=== PATIENT | female | born 1955 | race Caucasian/White ===

== ENCOUNTER → 2018-02-10 08:18 | Outpatient (CLI) | payer BC, SELFPAY ==
--- NOTE | 2018-02-10 08:24 | XR_ITS ---
XR foot wt bearing RT 3V HISTORY: ITS.REASON: pain ORDERING PHYSICIAN: Yanni Villegas DPM PATIENT AGE: 63 years COMPARISON: None FINDINGS: There is moderate hallux valgus with mild osteoarthritic change of the first MTP joint and mild hypertrophy of the distal aspect of the first metatarsal with soft tissue thickening at the distal first metatarsal medially. There is flattening of the head of the second metatarsal consistent with Freiberg's infarction.. No acute fracture or dislocation. No lytic or blastic change. There is borderline pes planus. IMPRESSION: 1. Hallux valgus with bunion formation 2. Freiberg's infarction second metatarsal head
--- NOTE | 2018-02-10 08:24 | XR_ITS ---
XR foot wt bearing LT 3V HISTORY: ITS.REASON: pain ORDERING PHYSICIAN: Yanni Villegas DPM PATIENT AGE: 63 years COMPARISON: History FINDINGS: There is severe hallux valgus with bunion formation at the distal first metatarsophalangeal joint and lateral displacement of the sesamoid bones at the distal first metatarsal and there is soft tissue swelling at the medial aspect of the distal first metatarsal. Mild pes planus. IMPRESSION: 1. Severe hallux valgus with bunion formation. 2. Mild pes planus
== END ==
PROVIDERS: PCP Nurse Practitioner Family; Visit Provider Podiatrist
DX: M79.673 Pain in unspecified foot (principal)
CPT/HCPCS: 73630

== ENCOUNTER → 2018-07-26 09:04 | Outpatient (POV) | payer BC, SELFPAY | PROVIDERS: Visit Provider Podiatrist | DX: Z00.00 Encounter for general adult medical examination without abnormal findings (principal) ==

== ENCOUNTER → 2018-08-23 10:13 | Outpatient (POV) | payer BC, SELFPAY | PROVIDERS: Visit Provider Podiatrist | DX: Z00.00 Encounter for general adult medical examination without abnormal findings (principal) ==

== ENCOUNTER 2019-11-16 21:52 | Emergency (ER) | payer BC, SELFPAY ==
[2019-11-16 22:11] VITALS: BP 189/84; PULSE 62; RESP 18; TEMP 36.6; O2SAT 99; BMI 29.0
--- NOTE | 2019-11-16 22:21 | CT_ITS ---
Procedure: CT ABDOMEN PELVIS WO CON Patient Age:64Y CLINICAL INDICATION: Right flank pain nausea and vomiting. Nonsmoker. COMPARISON: ABDPELW/O CT ABD PELVIS W/O CONTRAST from 05/11/2013 TECHNIQUE: No IV contrast. No oral contrast Helical Axial images obtained with sagittal and coronal reformats. All CT scans at the facility use one or more dose reduction, viz: automated exposure control, ma/kV adjustment per patient size (including targeted exams where dose is matched to indication, i.e. head), or iterative reconstruction technique. FINDINGS: Lower thorax: Mild dependent atelectasis posterior lung bases no significant acute findings. Small calcified granuloma anterior to the right infrahilar area ABDOMEN: Lack of oral and IV contrast decrease sensitivity and some regards but Liver: No masses or biliary dilatation. Small granulomatous calcifications few Gallbladder: Nondistended. No radio opaque stones. Pancreas: No masses or peripancreatic fluid collections. Spleen: unremarkable normal size granulomatous calcifications Adrenals: unremarkable ---- TRACT--------obstructive uropathy on right Small punctate calculi a few small punctate calculi both kidneys, less evident than on 2014 with 2 small calculi lower pole right kidney and upper pole left kidney. None measuring over 2 mm Right kidney: Mild hydronephrosis, with mild dilatation of the entire right ureter to the bladder; where we encounter a 3.75 mm transverse X 5.7 mm length elongated calculus projected over the posterior bladder-just entering the bladder or on the verge of passing through the final lips of the right UVJ. The obstructive uropathy yields mild diffuse periureteral stranding along with perinephric stranding reflecting the moderate pronounced obstructive uropathy. Two small nonobstructive calculi at upper pole left kidney Left kidney. I believe multiple parapelvic cysts at the left kidney, most likely account for the multiple fluid density areas centrally, (this is most convincing when compared to the coronal slice from 2014 CT).. Doubt obstructive uropathy on left PELVIS: Reproductive: unremarkable Bladder: Nondistended. No obvious stones or masses. Appendix: Unremarkable. No distention or periappendiceal phlegmonous change. GI tract Small hiatal hernia noted. Stomach: Moderate food and fluid mildly distend stomach Small bowel. No distension no wall thickening. Normal caliber. A few scattered air-fluid levels could reflect a minor ileus but unimpressive. Appendix normal. Large bowel with moderate stool right colon. Lack of distention and lack of stool of left colon accounts for the upper normal wall thickness here at left colon. .. Peritoneum: No abnormal fluid collections... No free air. Lymph nodes: No enlarged lymph nodes apparent. Vasculature: No evidence of abdominal aortic aneurysm. No retroperitoneal hemorrhage evident. Bones: No acute fracture or findings. Degenerative changes of the spine with disc space narrowing and spondylosis most pronounced L1/2 to the right, and L2/3. With associated levoscoliosis T12/L3 IMPRESSION: 1..Obstructive uropathy on right . Mild hydronephrosis with mild diffuse dilatation right ureter- due to calculus projected over posterior bladder at distal right UVJ and on the verge of passing into the bladder (this calculus measures 3.75 mm transverse X near 6 mm length) 2..Few tiny nonobstructive punctate calculi at kidneys bilaterally today (but less numerous than 2014) 3..Multiple parapelvic cyst most likely account for the appearance left kidney but Dictated by: Martinez Robles MD 11/17/2019 09:17 Electronically signed by Martinez Robles MD in [place] 11/17/19
[2019-11-16 22:29] LABS: Microscopic, Urine URINE MICROSCOPIC (MICROSCOPIC)
[2019-11-16 22:39] LABS: Appearance,Urine CLOUDY (Clear); Bilirubin,Urine Negative (Negative); Blood, Urine 3+ (Negative); Color,Urine YELLOW (Yellow); Glucose,Urine (UA) Negative (Negative); Ketones,Urine Negative (Negative); Leukocyte Esterase,Urine 2+ (Negative); Nitrate,Urine Negative (Negative); Protein,Urine 1+ (Negative); Urobilinogen,Urine 0.2 EU/dl (0.2)
--- NOTE | 2019-11-16 22:39 | HMH.EDGENADL ---
ED Disposition Clinical Impression: Renal colic on right side UTI (urinary tract infection) Qualifiers: Urinary tract infection type: site unspecified Hematuria presence: without hematuria Qualified Code(s): N39.0 - Urinary tract infection, site not specified Disposition: Home, Self-Care Condition on Discharge: Good Instructions: DI for Kidney Stones Additional Instructions: fluids and use meds and call pcp and dr massey on monday Prescriptions: Tamsulosin HCl [Flomax 0.4mg capsule] 0.4 mg PO HS #10 cap Transmission Status: Pending to [id number] levoFLOXacin [Levaquin 500mg tab] 500 mg PO DAILY #7 tab Transmission Status: Pending to [id number] Referrals: Dolores Moreno APRN [Primary Care Provider] - - Critical Care Critical Care Time: No Attestation: On 11/16/19, the high probability of a clinically significant, sudden or life threatening deterioration of the following system(s) required my full and direct attention, intervention and personal management. The time I documented below is in addition to time spent performing reported procedures but includes the following listed in this critical care notation. Medical Decision Making - Medical Records Medical records reviewed: Yes: I reviewed the patient's medical records. - Jose G Inquiry Pt receiving controlled substance: No Vital Signs: 11/16/19 22:11 Temperature 97.9 F Temperature Source Oral Pulse Rate [Left] 62 Respiratory Rate 18 Blood Pressure [Right Arm] 189/84 H Blood Pressure Mean [Right Arm] 119 Blood Pressure Source [Right Arm] Automatic Cuff Blood Pressure Position [Right Arm] Sitting 02 Sat by Pulse Oximetry 99 Oxygen Delivery Method Room Air - Lab Data Lab results reviewed: Yes: I reviewed the patient's lab results. Lab Results 11/16/19 22:10: Urine Color Yellow, Urine Appearance Cloudy, Urine pH 8.0, Ur Specific [place] 1.020, Urine Protein 1+, Urine Glucose (UA) Negative, Urine Ketones Negative, Urine Blood 3+, Urine Nitrate Negative, Urine Bilirubin Negative, Urine Urobilinogen 0.2, Ur Leukocyte Esterase 2+ A, Urine WBC 20-50, Amorphous Sediment 4+ 11/16/19 22:15: WBC 10.6, RBC 4.48, Hgb 13.6, Hct 41.3, MCV 92.2, MCH 30.4, MCHC 33.0, RDW 13.8, Plt Count 253, MPV 8.1, Neut % (Auto) 63.2, Lymph % (Auto) 29.6, [place] % (Auto) 5.4, Eos % (Auto) 1.5, Baso % (Auto) 0.3, Neut # (Auto) 6.7, Lymph # (Auto) 3.1, [place] # (Auto) 0.6, Eos # (Auto) 0.2, Baso # (Auto) 0.0 11/16/19 22:15: Sodium 142, Potassium 3.4 L, Chloride 103, Carbon Dioxide 27, Anion Gap 15.4 H, BUN 13, Creatinine 1.10 H, Estimated Creat Clear 66, Estimated GFR 50 L, Est GFR ( Amer) 60, Glucose 143 H, Calcium 10.7 H, Total Bilirubin 0.5, AST 33, ALT 17, Alkaline Phosphatase 90, Total Protein 7.3, Albumin 4.3, Globulin 3.0, Albumin/Globulin Ratio 1.4 Result diagrams: 11/16/19 22:15 11/16/19 22:15 Orders (Tests/Meds): ED MEDICATIONS Generic Name Dose Route Start Last Admin Trade Name Freq PRN Reason Stop Dose Admin Sodium Chloride 1,000 mls @ 999 mls/hr 11/16/19 22:30 11/16/19 22:29 Sod Chlor 0.9% 1000ml Bag IV 11/16/19 23:30 999 mls/hr .Q1H1M KAMI Administration Ceftriaxone Sodium 1 gm/ 50 mls @ 100 mls/hr 11/16/19 23:45 11/16/19 23:46 Sodium Chloride IV 11/30/19 23:44 100 mls/hr Q24H KAMI Administration Protocol Tamsulosin HCl 0.4 mg 11/17/19 23:44 Flomax 0.4mg Capsule PO 11/17/19 23:45 ONCE ONE Discontinued Medications Generic Name Dose Route Start Last Admin Trade Name Freq PRN Reason Stop Dose Admin Ketorolac Tromethamine 30 mg 11/16/19 22:21 11/16/19 22:28 Toradol 30mg/Ml Vial IV 11/16/19 22:22 30 mg ONCE ONE Administration Morphine Sulfate 4 mg 11/16/19 23:09 07/25/20 23:13 Morphine 4mg/Ml Syringe IV 11/16/19 23:10 4 mg ONCE ONE Administration Ondansetron HCl 4 mg 11/16/19 22:21 11/16/19 22:28 Zofran 4mg/2ml Vial IV 11/16/19 22:22 4 mg ONCE ONE
[2019-11-16 22:40] LABS: Basophils % 0.3 % (0.1-2.0); Eosinophils # 0.2 K/mm3 (0.0-0.4); Eosinophils % 1.5 % (0.1-12.0); Hematocrit 41.3 % (37.0-47.0); Hemoglobin 13.6 g/dL (12.2-16.2); Lymphocytes # 3.1 K/mm3 (0.7-4.5); Lymphocytes % 29.6 % (10-50); Mean Corpuscular Hemoglobin 30.4 pg (27.0-31.2); Mean Corpuscular Volume 92.2 fl (81-99); Mean Platelet Volume 8.1 fl (7.4-10.4); Monocytes # 0.6 K/mm3 (0.1-1.0); Monocytes % 5.4 % (1.7-9.3); Neutrophils # 6.7 K/mm3 (1.8-7.8); Neutrophils % 63.2 % (37.0-80.0); Platelet Count 253 K/mm3 (142-424); Red Blood Count 4.48 M/mm3 (4.20-5.40); Red Cell Distribution Width 13.8 % (11.5-17.5); White Blood Count 10.6 K/mm3 (4.8-10.8)
[2019-11-16 22:42] LABS: Alanine Aminotransferase 17 U/L (12-78); Albumin Level 4.3 g/dl (3.5-5.0); Albumin/Globulin Ratio 1.4 (1.1-1.8); Alkaline Phosphatase 90 U/L (38-126); Anion Gap 15.4 mEq/L (5-15); Aspartate Amino Transferase 33 U/L (14-36); Bilirubin,Total 0.5 mg/dl (0.2-1.3); Blood Urea Nitrogen 13 mg/dl (7-17); Calcium 10.7 mg/dl (8.4-10.2); Carbon Dioxide 27 mmol/L (22.0-30.0); Chloride 103 mmol/L (98-107); Creatinine Clearance Estimated 66 mL/min (50-200); Estimated Glomerular Filt Rate 50 ml/min (>60); GFR (African American) 60 ML/MIN (>60); Glucose 143 mg/dl (74-100); Potassium 3.4 mmoL/L (3.5-5.1); Sodium 142 mmol/L (136-145); Total Protein,Serum 7.3 g/dl (6.3-8.2)
[2019-11-16 22:45] LABS: Amorphous Sediment,Urine 4+ /lpf; WBC,Urine 20-50 #/hpf (0-3)
[2019-11-17 00:08] VITALS: BP 118/42; PULSE 76; RESP 12; TEMP 36.6; O2SAT 98
== END 2019-11-17 00:13 | disposition home or self-care (01) ==
PROVIDERS: Emergency Provider Emergency Medicine; PCP Nurse Practitioner Family
DX: N23 Unspecified renal colic (principal); N30.00 Acute cystitis without hematuria; J44.9 Chronic obstructive pulmonary disease, unspecified; K21.9 Gastro-esophageal reflux disease without esophagitis; E78.5 Hyperlipidemia, unspecified; Z79.899 Other long term (current) drug therapy; M81.0 Age-related osteoporosis without current pathological fracture
CPT/HCPCS: 74176; 80053; 81001; 85025; 87086; 96365; 96366; 96367; 96375; 96376; 99283; J2405

== ENCOUNTER 2019-11-20 11:46 | Emergency (ER) | payer BC, SELFPAY ==
--- NOTE | 2019-11-20 11:55 | HMH.EDGENADL ---
ED Disposition Clinical Impression: Renal colic on right side Disposition: Home, Self-Care Condition on Discharge: Good Instructions: DI for Acute Pain -- Adult, DI for Kidney Stones Additional Instructions: Follow-up with your urologist in the morning as planned. Use Zofran if needed for nausea. Prescriptions: Ondansetron [Zofran 4mg ODT] 4 mg PO Q6 PRN #10 tab.rapdis PRN Reason: Nausea Prescription Printed - Critical Care Critical Care Time: No Attestation: On 11/20/19, the high probability of a clinically significant, sudden or life threatening deterioration of the following system(s) required my full and direct attention, intervention and personal management. The time I documented below is in addition to time spent performing reported procedures but includes the following listed in this critical care notation. Medical Decision Making - Medical Records Medical records reviewed: Yes: I reviewed the patient's medical records. - Jose G Inquiry Pt receiving controlled substance: No Vital Signs: 11/20/19 12:09 Pulse Rate [Radial] 78 Respiratory Rate 18 Blood Pressure [Right Arm] 188/83 H Blood Pressure Mean [Right Arm] 118 Blood Pressure Source [Right Arm] Automatic Cuff Blood Pressure Position [Right Arm] Sitting 02 Sat by Pulse Oximetry 96 Oxygen Delivery Method Room Air - Lab Data Lab results reviewed: Yes: I reviewed the patient's lab results. Lab Results 11/20/19 11:57: Urine Color Yellow, Urine Appearance Clear, Urine pH 7.5, Ur Specific [place] 1.025, Urine Protein 2+, Urine Glucose (UA) Negative, Urine Ketones 2+, Urine Blood 1+, Urine Nitrate Negative, Urine Bilirubin Negative, Urine Urobilinogen 0.2, Ur Leukocyte Esterase Negative, Urine RBC 5-10, Urine WBC 3-5, Ur Squamous Epith Cells Occasional Orders (Tests/Meds): ED MEDICATIONS Discontinued Medications Generic Name Dose Route Start Last Admin Trade Name Freq PRN Reason Stop Dose Admin Ketorolac Tromethamine 60 mg 11/20/19 11:57 11/20/19 12:21 Toradol 60mg/2ml Vial IM 11/20/19 11:58 60 mg ONCE ONE Administration Medical Decision Narrative: With urinalysis that shows no signs of infection. She is much improved with Toradol here. She has Tylenol 3 at home, but the codeine may be making her nauseous, so I have given her a Zofran here and recommended that she take a pain pill in the next 1 to 2 hours if she has any residual pain. We will also write a prescription for Zofran. She has urology follow-up in the morning for definitive management of her ureterolithiasis. General Adult HPI - General Stated complaint: right side and back pain Time Seen by Provider: 11/20/19 11:56 - History of Present Illness HPI narrative: This is a 64-year-old female with a past medical history significant for recently diagnosed kidney stone who presents to the emergency department for nausea, vomiting, right flank pain that began again this morning. She tried taking a Tylenol 3, but threw it back up. She does have burning with urination. She was fine when she went to bed last night. She has a urology appointment in the morning. She is also currently on Flomax and Levaquin. She has been urinating frequently and drinking water without difficulty until she became nauseous this morning. No fever. - Related Data Home Medications Medication Instructions Recorded Confirmed Alendronate Sodium [Alendronate 40 mg PO WEEKLY 06/05/19 11/20/19 40mg Tablet] Famotidine 40 mg PO NEEDED PRN 06/05/19 11/20/19 Acetaminophen with Codeine 1 tab PO Q6HP PRN 11/20/19 11/20/19 [Tylenol with Codeine #3 tablet] Tamsulosin HCl [Flomax 0.4mg 0.4 mg PO HS 11/20/19 11/20/19 capsule] levoFLOXacin [Levaquin 500mg 500 mg PO DAILY 11/20/19 11/20/19 tab] Previous Rx's Medication Instructions Recorded Ondansetron [Zofran 4mg ODT] 4 mg PO Q6 PRN #10 tab.rapdis 11/20/19 Allergies Allergy/AdvRe
[2019-11-20 12:04] LABS: Microscopic, Urine URINE MICROSCOPIC (MICROSCOPIC)
[2019-11-20 12:08] LABS: Appearance,Urine CLEAR (Clear); Bilirubin,Urine Negative (Negative); Blood, Urine 1+ (Negative); Color,Urine YELLOW (Yellow); Glucose,Urine (UA) Negative (Negative); Ketones,Urine 2+ (Negative); Leukocyte Esterase,Urine Negative (Negative); Nitrate,Urine Negative (Negative); PH,Urine 7.5 (5.0-8.5); Protein,Urine 2+ (Negative); Specific Gravity, Urine 1.025 (1.005-1.030); Urobilinogen,Urine 0.2 EU/dl (0.2)
[2019-11-20 12:09] VITALS: BP 188/83; PULSE 78; RESP 18; O2SAT 96; BMI 26.6
[2019-11-20 12:24] LABS: Squamous Epithelial Cell,Urine Occasional #/hpf (0-5)
[2019-11-20 12:36] VITALS: BP 124/85; PULSE 80; RESP 18; TEMP 36.7; O2SAT 98
== END 2019-11-20 12:38 | disposition home or self-care (01) ==
PROVIDERS: Emergency Provider Emergency Medicine; PCP Nurse Practitioner Family
DX: N23 Unspecified renal colic (principal); Z87.442 Personal history of urinary calculi; J44.9 Chronic obstructive pulmonary disease, unspecified; K21.9 Gastro-esophageal reflux disease without esophagitis; E78.5 Hyperlipidemia, unspecified; M81.0 Age-related osteoporosis without current pathological fracture
CPT/HCPCS: 81001; 96372; 99282

== ENCOUNTER → 2019-11-21 10:15 | Outpatient (CLI) | payer BC, SELFPAY ==
--- NOTE | 2019-11-21 10:22 | XR_ITS ---
PROCEDURE: XR KUB CLINICAL INDICATION: kidney stone COMPARISON: CT ABDOMEN PELVIS WO CON from 11/16/2019 FINDINGS: Gas and stool-filled small and large bowel loops are seen throughout the abdomen and pelvis with obscure a almendarez of the bilateral renal shadows. No pathology calculus of occasions are visualized in the abdomen and pelvis. Likely there is segmental small bowel adynamic ileus with gas-filled distended bowel loops in the upper/left-sided abdomen. No evidence of mechanical bowel obstruction demonstrated. There are degenerative changes of the lumbosacral spine. Bilateral hip osteoarthrosis. IMPRESSION: 1.Gas-filled dilated segments of bowel loops are seen in the upper left side abdomen, indicative of segmental adynamic ileus. 2. Increased stool is seen in the colon. Nonobstructive bowel gas pattern Dictated by: Dipti Miramontes 11/21/2019 18:06 Electronically signed by Dipti Miramontes in [place] 11/21/2019 18:06
== END ==
PROVIDERS: PCP Nurse Practitioner Family; Visit Provider Urology
DX: N20.0 Calculus of kidney (principal)
CPT/HCPCS: 74018

== ENCOUNTER 2023-06-13 11:42 | Outpatient (CLI) | payer MEDICARE, SELFPAY ==
[2023-06-13 13:25] VITALS: BMI 24.7
== END 2023-06-13 23:59 ==
LOC: DIETICIAN 11:42
PROVIDERS: PCP Nurse Practitioner Family; Visit Provider Nurse Practitioner Family
DX: Z71.3 Dietary counseling and surveillance (principal); E78.00 Pure hypercholesterolemia, unspecified
CPT/HCPCS: 97802

== ENCOUNTER 2024-01-11 14:05 | Outpatient (CLI) | payer MEDICARE, SELFPAY ==
--- NOTE | 2024-01-11 14:09 | US_ITS ---
FINAL REPORT TECHNIQUE: Limited ultrasound imaging of the left inguinal region was obtained. CLINICAL HISTORY: LT HERNIA MASS FINDINGS: No hernia is identified. Palpable abnormality is seen at the level of a vascular structure. IMPRESSION: Palpable abnormality at the level of vascular structure. No hernia identified. Reviewed, Interpreted and Dictated by Jeanmarie Thomas MD Transcribed by Lissa Corets Authenticated and [facility]
== END 2024-01-11 23:59 | disposition home or self-care (01) ==
PROVIDERS: PCP Nurse Practitioner Family; Visit Provider Nurse Practitioner Family
DX: R19.09 Other intra-abdominal and pelvic swelling, mass and lump (principal)
CPT/HCPCS: 76882

== ENCOUNTER 2024-09-19 06:28 | Day surgery (SDC) | payer MEDICARE, SELFPAY ==
[2024-09-18 14:25] VITALS: BMI 25.0
[2024-09-19 07:14] VITALS: BP 149/71; PULSE 69; RESP 18; TEMP 36.6; O2SAT 100
[2024-09-19] MEDS: LACTATED RINGERS 1000ML 1,000 ML 999 ML IV (07:24)
--- NOTE | 2024-09-19 07:32 | P.PNANES_ITS ---
[facility] Disclaimer: The information contained in this section may have been updated after the patient was seen, as this information can be updated by other users. Medical History Kidney stone COPD (chronic obstructive pulmonary disease) Migraine History of gastroesophageal reflux (GERD) Heart murmur Hyperlipidemia Surgical History (Updated 09/18/24 @ 14:24 by Karolina Moreno RN) History of surgery H/O wrist surgery H/O tubal ligation Family History (Updated 09/18/24 @ 14:24 by Karolina Moreno RN) Other Colon cancer Heart disease Social History (Updated 09/18/24 @ 14:20 by Karolina Moreno RN) Smoking Status: Never smoker alcohol intake: never substance use type: denies use current occupational status: employed Travel in the last 8 weeks?: None housing: house caffeine: Yes Have you lived/traveled outside [place] in past 30 days?: No Contact w/someone who lives/traveled outside US past 30 days?: No Exposure to someone with infectious disease in past 14 days?: No Do you have a fever (greater than 100.4 F or 38 C)?: No Have you tested positive for COVID-19?: No Exposed to someone with COVID-19 in past 14 days?: No Do you have a sore throat?: No Do you have a cough?: No Do you have any weakness?: No Are you experiencing any nausea/vomitting?: No Do you have any diarrhea?: No Are you experiencing any unusual bleeding?: No Do you have any muscle aches/pain?: No Do you have any abdominal pain?: No Are you experiencing loss of taste or smell?: No [facility] Anesthesia Checklist Patient Identification Patient Identification: Arm Band and Verbal (Name & ) Structural Data Admitted From: Home Planned Operative Procedure/s: colonoscopy Consent for Planned Operative Procedure(s) Verified: Yes Verified Documents: Surgical Consent NPO Status Verified Time NPO: 00:00 Chart Verification Results Verified: None Additional verifications Anesthesia Reactions: No Airway Assessment Mallampati Score:: Class II C-Spine Mobility Assessed: Yes TMJ Mobility Assessed: Yes Dentition: Good Dentition Neurological Assessment Level of Consciousness: Awake, Alert and Appropriate Hx Seizures: No Numbness or tingling in extremities: No Anesthesia Plan Anesthesia Plan: Verified ASA Class: II Anesthesia Type: MAC
--- NOTE | 2024-09-19 08:11 | EXP.HP ---
History of Present Illness *Admission Date: 09/19/24 *Reason for visit:: Family history of colon cancer *History of present illness: Mrs. Ellison is a 69-year-old female who is here for follow-up surveillance colonoscopy. The patient's mother had colon cancer at the age of 73. She does have a personal history of adenomatous polyps. Her colonoscopy in May 2014 revealed 2 polyps (tubular adenoma x 1/hyperplastic polyp x 1) which was removed. Her last colonoscopy in May 2019 was normal. The examination is deemed medically necessary for surveillance/screening. The patient has been seen, interviewed and examined prior to the procedure by both myself and the anesthesia provider. [facility] Disclaimer: The information contained in this section may have been updated after the patient was seen, as this information can be updated by other users. Medical History (Updated 09/19/24 @ 08:27 by Robin Rodriguez II, MD) Kidney stone COPD (chronic obstructive pulmonary disease) Migraine History of gastroesophageal reflux (GERD) Heart murmur Hyperlipidemia Surgical History (Updated 09/18/24 @ 14:24 by Karolina Moreno RN) History of surgery H/O wrist surgery H/O tubal ligation Family History (Updated 09/18/24 @ 14:24 by Karolina Moreno RN) Other Colon cancer Heart disease Social History (Updated 09/18/24 @ 14:20 by Karolina Moreno RN) Smoking Status: Never smoker alcohol intake: never substance use type: denies use current occupational status: employed Travel in the last 8 weeks?: None housing: house caffeine: Yes Have you lived/traveled outside [place] in past 30 days?: No Contact w/someone who lives/traveled outside US past 30 days?: No Exposure to someone with infectious disease in past 14 days?: No Do you have a fever (greater than 100.4 F or 38 C)?: No Have you tested positive for COVID-19?: No Exposed to someone with COVID-19 in past 14 days?: No Do you have a sore throat?: No Do you have a cough?: No Do you have any weakness?: No Are you experiencing any nausea/vomitting?: No Do you have any diarrhea?: No Are you experiencing any unusual bleeding?: No Do you have any muscle aches/pain?: No Do you have any abdominal pain?: No Are you experiencing loss of taste or smell?: No Other Medical History Have you received the Flu Vaccine for this season: No Have you received the Pneumonia Vaccine: Yes Review of Systems Review of Systems Review of systems (narrative): Negative *Cardiovascular Comments: Negative *Gastrointestinal Comments: Negative *Genitourinary Comments: Negative *Musculoskeletal Comments: Negative *Neurologic Comments: Negative Meds Home Medications and Allergies Home Medications ?Medication ?Instructions ?Recorded ?Confirmed ?Type famotidine 40 mg tablet 40 mg PO NEEDED PRN Acid Reflux 06/05/19 09/18/24 History sodium,potassium,mag sulfates 17.5 See Rx Instructions PO .COMPLEX 09/05/24 09/18/24 Rx gram-3.13 gram-1.6 gram oral soln #354 mL (Suprep Bowel Prep Kit) aspirin 81 mg tablet 81 mg PO DAILY 09/18/24 09/18/24 History calcium 600 mg (as carbonate)-vit 1 tab PO DAILY 09/18/24 09/18/24 History D3 20 mcg (800 unit) chewable tablet (Caltrate plus D) polyethylene glycol 3350 17 17 g PO DAILY 09/18/24 09/18/24 History gram/dose oral powder (Miralax) psyllium 1 packet PO DAILY 09/18/24 09/18/24 History rosuvastatin 10 mg tablet 10 mg PO DAILY 09/18/24 09/18/24 History New Prescriptions to Start Prescriptions: Allergies Allergy/AdvReac Type Severity Reaction Status Date / Time No Known Allergies Allergy Verified 09/19/24 07:13 Exam Data for Last 24 hours Vital signs and Labs for Last 24 Hours: Temp Pulse Resp BP Pulse Ox O2 Del Method 97.9 F 69 18 149/71 H 100 Room Air 09/19/24 07:14 09/19/24 07:14 09/19/24 07:14 09/19/24 07:14 09/19/24 07:14 09/19/24 07:14 I & O for Last 24 hours: Intake & Output 09/16/24 09/17/24 09/18/24 09/19/24 23:59 23:59 23:59 23:59 Weight 146 lb *Routine HEENT Exam Head: Present normocephalic Eye: Present EOMI and PERRL ENT: Present mucous membranes moist *Routine Neck Exam Neck: Present supple *Routine Respiratory Exam Respiratory: Present CTA bilaterally *Routine Cardiovascular Exam Cardiovascular: Present RRR *Routine Abdominal Exam Abdominal: Present soft and normoactive bowel sounds; Absent tenderness *Routine Rectal Exam Rectal:: deferred *Routine Genitalia Exam Genitalia:: deferred *Routine Extremities Exam Extremities: Absent cyanosis, clubbing or edema *Routine Skin Exam Skin: Present warm; Absent rash *Routine Neurological Exam Neurological: Present alert and oriented X3 Assessment and Plan *Assessment and plan (1) Family history of colon cancer in mother: Status: Acute Category: Medical Code(s): Z80.0 - Family history of malignant neoplasm of digestive organs (2) Personal history of adenomatous and serrated colon polyps: Status: Acute Category: Medical Code(s): Z86.0101 - Personal history of adenomatous and serrated colon polyps Plan A/P: 1. Family history of colon cancer (mother) and personal history of adenomatous colon polyps is the preprocedural diagnosis. The patient will be anesthetized/sedated using MAC sedation. The patient has been seen and examined. Cardiac and lung assessment prior to the examination is stable. Proceed with planned surveillance colonoscopy.
--- NOTE | 2024-09-19 08:28 | P.PCN_ITS ---
[facility] Procedure Note Date: 09/19/24 Time: 08:42 Procedure Note:: Colonoscopy Procedure Report: Colonoscopy Endoscopist: Robin Rodriguez II, MD Referring physician: DAINA Vigil Date of Procedure: September 19, 2024 Equipment: Olympus 190 variable stiffness pediatric colonoscope Sedation: MAC sedation Indication: Mrs. Ellison is a 69-year-old female who is here for follow-up surveillance colonoscopy. Her mother had colon cancer at the age of 73. She did have a colonoscopy in May 2014 (Fiordaliza Carias MD) and had 2 polyps (tubular adenoma x 1/hyperplastic polyp x 1) removed. Her last colonoscopy with ma in May 2019 was normal. She formerly had issues with chronic cons tipation and IBS but has done well with dietary measures and fiber bowel regimen (combined MiraLAX plus Metamucil) daily. She reports no rectal bleeding, abdominal pain, weight loss or change in bowel habits. Procedure: Prior to the procedure, a history and physical exam was performed, and patient's medications and allergies were reviewed. The risks, benefits and alternatives of the sedation and procedure were discussed with the patient. All questions were answered and informed consent was obtained. The patient was brought to the procedure room. Patient identification and proposed procedure were verified by the physician and the nurse. The patient was placed in a left lateral decubitus position and the scope was passed under direct vision. Throughout the procedure, the patient's blood pressure, pulse, and oxygen saturations were monitored continuously. The colonoscopy was accomplished without difficulty. The patient tolerated the procedure well. Findings: On digital rectal examination there was normal rectal tone. There were no external hemorrhoids. The colonoscope was introduced through the anal canal to the rectum and advanced to the cecum. The ileocecal valve and appendiceal orifice were identified. The scope was advanced a short distance into the ileum which appeared grossly normal. The scope was then withdrawn into the colon. The cecum, ascending, transverse, descending, sigmoid and rectum were grossly normal. There were no mucosal abnormalities identified. Upon retroflexion within the rectum there were grade 1-2 internal hemorrhoids. The preparation was e xcellent throughout with [place] Preparation Score of 9. The cecal time was 10 minutes. Impression: 1. Normal colonoscopy with intubation of the terminal ileum Plan: Those persons that constitute having a stronger family history of colorectal cancer are those with a first-degree relative (parent, sibling, or child) diagnosed with colon cancer when they were younger than 50, or if more than one first-degree relative is affected. It is in these persons, that we recommend surveillance colonoscopy every 5 years. Persons that have a first-degree family member greater than 60 years of age at the time of their diagnosis are not deemed to be at greater risk because most colon cancers are sporadic (environmental and other factors) and are not hereditary. Only about 5 to 10 percent of colon cancer is hereditary. I will discuss advised with the patient and determine whether further surveillance is warranted.
[2024-09-19 08:47] VITALS: BP 88/49; PULSE 68; RESP 16; TEMP 36.4; O2SAT 94
[2024-09-19 08:57] VITALS: BP 90/52; PULSE 65; RESP 16; O2SAT 94
[2024-09-19 09:07] VITALS: BP 113/53; PULSE 55; RESP 18; O2SAT 98
[2024-09-19 09:17] VITALS: BP 104/53; PULSE 62; RESP 18; O2SAT 97
== END 2024-09-19 09:29 | disposition home or self-care (01) ==
PROVIDERS: PCP Nurse Practitioner Family; Visit Provider Internal Medicine Gastroenterology
PROC: 0DJD8ZZ Inspection of Lower Intestinal Tract, Via Natural or Artificial Opening Endoscopic (ICD-10-PCS; CPT 45378; principal; 2024-09-19 08:00)
DX: K64.0 First degree hemorrhoids (principal); Z12.11 Encounter for screening for malignant neoplasm of colon; Z86.0101 Personal history of adenomatous and serrated colon polyps; Z80.0 Family history of malignant neoplasm of digestive organs; J44.9 Chronic obstructive pulmonary disease, unspecified; E78.5 Hyperlipidemia, unspecified; K21.9 Gastro-esophageal reflux disease without esophagitis; Z79.899 Other long term (current) drug therapy
CPT/HCPCS: 45378; J2003; J2704; J7120

== ENCOUNTER 2025-02-05 09:39 | Outpatient (CLI) | payer MEDICARE, SELFPAY ==
--- NOTE | 2025-02-05 09:44 | CT_ITS ---
FINAL REPORT TECHNIQUE: Thin section axial images were obtained from the lung bases to the pubic symphysis without IV contrast. Coronal and sagittal reconstruction images were obtained from the axial data. Exam was performed using dose reduction technique. This study was performed with techniques to keep radiation doses as low as reasonably achievable (ALARA). Individualized dose reduction techniques using automated exposure control or adjustment of mA and/or kV according to the patient's size were employed. CLINICAL HISTORY: GROSS HEMATURIA, HX KIDNEY STONES COMPARISON: 11/16/2019 FINDINGS: There are nonobstructing bilateral renal stones measuring 2 to 3 mm in size. There are no obstructing ureteral stones. There is no hydronephrosis or perinephric stranding. There are likely parapelvic cysts in the right kidney. The gallbladder is present. The remaining unenhanced solid abdominal organs are unremarkable. There is no evidence of small bowel obstruction. The appendix is normal. GI tract is without acute abnormality. The uterus is unremarkable for age. There is no lymphadenopathy or ascites. No acute osseous abnormality is identified. IMPRESSION: No obstructing renal or ureteral stones. No hydronephrosis. There are nonobstructing bilateral renal stones measuring 2 to 3 mm each. Reviewed, Interpreted and Dictated by Becka Santana MD Transcribed by Kayli Chowdhury Authenticated and [facility]
--- OUTSIDE RECORDS SUMMARY | 2025-02-05 09:56 | XMS_ITS | Data Portability ---
Author Organization [facility] Address [address] [place] [address] Care Team Providers Care Coarse Wire Drawer Name Role Phone VICTORIA PEDRO Miner Pick Assessment Encounter Date Assessment Date Assessment LastModified by Organization Details LastModified Time 05/16/2023 05/16/2023 68 yo F here today for annual exam. Pap done Mammo today Will call or mail letter with above results when received. RTC 2 year medicare annual or earlier PRN [email or web address] Not available 05/16/2023 09:34:49 Plan of Treatment Reminders Order Date Submit Date Provider Last Modified By Organization Details Last Modified Time Details Appointments RECHECK 2024 10:00A M VICTORIA PEDRO SENIOR BUSINESS CONSULTANT Not available Not available Not available MAMMOGRA M 2025 01:30P M MAMMOGRAM Not available Not available Not available ANNUAL CASCADE OPERATOR 2025 02:30P M RO MUNIZ MD Not available Not available Not available Lab PTH (parathy roid hormone) , intact + calcium, serum or plasma 2023 [facility], [address] [place] [address], [phone], 04/15/2024 11:13:00 BMP, serum or plasma 2023 024 [facility], [address] [place] [address], [address], 04/15/2024 11:12:13 vitamin D, 25-hydro xy, total, serum 2023 024 [facility], [address] [place] [address], [address], 04/15/2024 11:30:04 pap, LB 2023 024 [facility], [address] [place] [address], [address], 05/22/2023 14:54:18 PTH (parathy roid hormone) , intact + calcium, serum or plasma 2022 023 [facility], [address] [place] [address], [address], 04/13/2023 11:25:29 BMP, serum or plasma 2022 023 [facility], [address] [place] [address], [address], 04/13/2023 11:13:06 vitamin D, 25-hydro xy, total, serum 2022 023 [facility], [address] [place] [address], [address], 04/13/2023 11:25:32 Referral None recorded . Procedures None recorded . Surgeries None recorded . Imaging None recorded . Medication Orders None recorded . Patient TargetsNo targets recorded. Patient InstructionsNo instructions recorded. Reason for Referral None Reported. Results Created Date Observation Date Name Description Value Unit Range Abnormal Flag Note LastModifiedBy Organization Detail LastModifiedTime 04/13/2004/13/2023 BASIC METAB OLIC PANEL glucose 94 mg/dL 74-100 normal Not Available [facility] [address] [place] [address], [address], 04/13/2023 11:13:06 04/13/20 23 04/13/2023 BASIC METAB OLIC PANEL blood urea nitrogen 13 mg/dL 6-20 normal Not Available [facility] [address] [place] [address], [address], 04/13/2023 11:13:06 04/13/20 23 04/13/2023 BASIC METAB OLIC PANEL creatinine 0.75 mg/dL 0.50-0 .95 normal Not Available [facility] [address] [place] [address], [address], 04/13/2023 11:13:06 04/13/20 23 04/13/2023 BASIC METAB OLIC PANEL BUN/creatini ne ratio 17 (calc ) 10-20 normal Not Available [facility] [address] [place] [address], [address], 04/13/2023 11:13:06 04/13/20 23 04/13/2023 BASIC METAB OLIC PANEL sodium 143 mmol/ L 136-14 5 normal Not Available [facility] [address] [place] [address], [address], 04/13/2023 11:13:06 04/13/20 23 04/13/2023 BASIC METAB OLIC PANEL potassium 3.8 mmol/ L 3.4-5. 0 normal Not Available [facility] [address] [place] [address], [address], 04/13/2023 11:13:06 04/13/20 23 04/13/2023 BASIC METAB OLIC PANEL chloride 104 mmol/ L 98-107 normal Not Available [facility] [address] [place] [address], [address], 04/13/2023 11:13:06 04/13/20 23 04/13/2023 BASIC METAB OLIC PANEL carbon dioxide 29 mmol/ L 22-31 normal Not Available [facility] [address] [place] [address], [address], 04/13/2023 11:13:06 04/13/20 23 04/13/2023 BASIC METAB OLIC PANEL anion gap 10 (calc ) 7-25 normal Not Available [facility] [address] [place] [address], [address], 04/13/2023 11:13:06 04/13/20 23 04/13/2023 BASIC METAB OLIC PANEL calcium 9.3 mg/dL 8.6-10 .2 normal Not Available [facility] [address] [place], [address], 04/13/2023 11:13:06 04/13/20 23 04/13/2023 BASIC METAB OLIC PANEL GFR 86 >= 60 normal NOT E New calcu latio n for GFR (CKD- EPI 2020) is formu lated witho ut race adjus tment facto rs at the recom menda tion of the Natio nal Dora y Found at[place]elaide and Satnam Le ty of Nephr ology . This calcu latio n has not been valid ated in pregn ant women . For andreaia idris krafte nts refer to https ://jason arora.mercy israel.o umang/pr usamaess adelaideal s/KDO QI/gf r_cal culat orPed Not Available [facility] [address] [place], [address], 04/13/2023 11:13:06 04/13/20 23 04/13/2023 PTH, INTAC T WITH CA PTH, intact 31.0 pg/mL 15.0-6 5.0 normal INTER PRETI VE GUIDE ===== ===== ===== ===== ===== ===== ===== ===== ===== ===== ===== === PTH CALCI UM CONDI TION ===== ===== ===== ===== ===== ===== ===== ===== ===== ===== ===== = Sandy l Sandy l Sandy l Parat hyroi d _ Low or Low Hypop kristie yroid ism Low Sandy l _ Sandy l or High Prima ry Hyper parat hyroi dism High __ High Sandy l or Secon alia Hyper parat hyroi dism Low __ High High Terti zaida Hyper parat hyroi dism __ Low or High Non-P kristie yroid Hyper calce tamie Low Sandy l ===== ===== ===== ===== ===== ===== ===== ===== ===== ===== ===== ==== Not Available [facility] [address] [place] [address], [address], 04/13/2023 12:22:21 04/13/20 23 04/13/2023 PTH, INTAC T WITH CA calcium 9.5 mg/dL 8.6-10 .2 normal Not Available [facility] [address] [place], [address], 04/13/2023 12:22:21 04/13/20 23 04/13/2023 VITAM IN D 25-OH vitamin D 25-oh, total 38 NG/mL >=30 NG/mL normal Not Available [facility] [address] [place], [address], 04/13/2023 11:25:31 05/16/19 24 05/16/2023 PAP SMEAR Pap smear SEE BELOW normal Depar tment of Patho logy GYNEC OLOGI JAVIER CYTOL OGY REPOR T NAME: JAYASHREE JIM PATHO LOGY NO.: [id number] Copy to: [facility] E OF SPECI MEN: CERVI JAVIER-T HIN PREP RELEV ANT HISTO RY: No LMP given . Menop ause: Y Menop ause info: POST MENOP AUSAL Comme nt: SEND FOR HPV IF ASCUS SPECI MEN ADEQU ACY SATIS FACTO RY FOR EVALU ATION ENDOC ERVIC AL/TR ANSFO RMATI ON ZONE COMPO NENT ABSEN T GENER AL CATEG ORIZA TION NEGAT DIOGO FOR INTRA EPITH ELIAL LESIO N OR MALIG FANNIE DESCR IPTIV E DIAGN OSIS ATROP HY. ÁNGEL CONKLIN SS, CT (ASCP ) Liliya d Out Date: 05/22 14:53 Cervi javier/v agina l cytol ogy is a scree timothy test with a recog nized false negat diogo rate. New techn ologi es may decre ase, but will not elimi daniele false negat diogo resul ts. Regul ar cytol ogy scree timothy is recom cliff d to minim ize false negat diogo resul ts. The ThinP rep(R ) Imagi ng syste m is used to gianna t in prima ry cervi javier cance r scree timothy of ThinP rep(R ) Pap test slide s. Page 1 of 1 Not Available [facility] [address] [place], [address], 05/22/2023 14:54:18 04/15/20 24 04/15/2024 BASIC METAB OLIC PANEL glucose 89 mg/dL 74-100 normal Not Available [facility] [address] [place], [address], 04/15/2024 11:12:13 04/15/20 24 04/15/2024 BASIC METAB OLIC PANEL blood urea nitrogen 14 mg/dL 6-20 normal Not Available [facility] [address] [place] [address], [address], 04/15/2024 11:12:13 04/15/20 24 04/15/2024 BASIC METAB OLIC PANEL creatinine 0.83 mg/dL 0.50-0 .95 normal Not Available [facility] [address] [place] [address], [address], 04/15/2024 11:12:13 04/15/20 24 04/15/2024 BASIC METAB OLIC PANEL BUN/creatini ne ratio 17 (calc ) 10-20 normal Not Available [facility] [address] [place] [address], [address], 04/15/2024 11:12:13 04/15/20 24 04/15/2024 BASIC METAB OLIC PANEL sodium 143 mmol/ L 136-14 5 normal Not Available [facility] [address] [place] [address], [address], 04/15/2024 11:12:13 04/15/20 24 04/15/2024 BASIC METAB OLIC PANEL potassium 4.2 mmol/ L 3.4-5. 0 normal Not Available [facility] [address] [place] [address], [address], 04/15/2024 11:12:13 04/15/20 24 04/15/2024 BASIC METAB OLIC PANEL chloride 103 mmol/ L 98-107 normal Not Available [facility] [address] [place] [address], [address], 04/15/2024 11:12:13 04/15/20 24 04/15/2024 BASIC METAB OLIC PANEL carbon dioxide 28 mmol/ L 22-31 normal Not Available [facility] [address] [place] [address], [address], 04/15/2024 11:12:13 04/15/20 24 04/15/2024 BASIC METAB OLIC PANEL anion gap 12 (calc ) 7-25 normal Not Available [facility] [address] [place], [address], 04/15/2024 11:12:13 04/15/20 24 04/15/2024 BASIC METAB OLIC PANEL calcium 9.7 mg/dL 8.6-10 .2 normal Not Available [facility] [address] [place], [address], 04/15/2024 11:12:13 04/15/20 24 04/15/2024 BASIC METAB OLIC PANEL GFR 76 >= 60 normal NOT E New calcu latio n for GFR (CKD- EPI 2020) is formu lated witho ut race adjus tment facto rs at the [facility] menda tion of the Malik jason and Sat[employer] Le [employer] of Nephr ology . This calcu latio n has not been valid ated in pregn ant women . For pedia tric patie nts refer to https ://jason israel.sandra heck/brianna mc s/ADRIAN QI/gf r_cal culat orPed Not Available [facility] [address] [place], [address], 04/15/2024 11:12:13 04/15/20 24 04/15/2024 PTH, INTAC T WITH CA PTH, intact 20.0 pg/mL 15.0-6 5.0 normal INTER PRETI VE GUIDE ===== ===== ===== ===== ===== ===== ===== ===== ===== ===== ===== === PTH CALCI UM CONDI TION ===== ===== ===== ===== ===== ===== ===== ===== ===== ===== ===== = Sandy l Sandy l Sandy l Parat hyroi d _ Low or Low Hypop kristie yroid ism Low Sanyd l _ Sandy l or High Prima ry Hyper parat hyroi dism High __ High Sandy l or Secon alia Hyper parat hyroi dism Low __ High High Terti zaida Hyper parat hyroi dism __ Low or High Non-P kristie yroid Hyper calce tamie Low Sandy l ===== ===== ===== ===== ===== ===== ===== ===== ===== ===== ===== ==== Not Available [facility] [address] [place] [address], [address], 04/15/2024 11:30:03 04/15/20 24 04/15/2024 PTH, INTAC T WITH CA calcium 9.6 mg/dL 8.6-10 .2 normal Not Available [facility] [address] [place], [address], 04/15/2024 11:30:03 04/15/20 24 04/15/2024 VITAM IN D 25-OH vitamin D 25-oh, total 48 NG/mL >=30 NG/mL normal Not Available [facility] [address] [place], [address], 04/15/2024 11:30:04 04/17/20 23 04/13/2023 DEXA No observ ation record ed. [email or web address] Anusha Alvarenga MD [address] [place], [address], 04/19/2023 16:10:24 05/16/19 24 05/16/2023 MAMMO , scree timothy, tomos ynthe sis, bilat eral, w/ CAD [place] [address] [place] [address] Pily rich Name: JAYASHREE villanueva : 1954 Age: 68 years Patiglenny villanueva Orderi ng Provid er: SHABBIR HARRISON EXAM DATE: 2023 EXAM: MG SCREEN ING PAULO MAMMOG PILAR INDICA TION: Routin e screen ing. PROCED URE: Multis lice imagin g of both breast s was perfor med in standa rd projec tions using Hologi c Seleni a Dimens ions tomosy nthesi s equipm ent (3D mammog mia) . 2D images were create d from the 3D datase t using C-View softwa re. The study was read with the assist ance of Comput er Aided Detect ion (CAD) softwa re. COMPAR DOV: This was compar ed with previo us mammog marv dated 2021, 2020, 2019 FINDIN GS: The breast s are hetero geneou sly dense. This may lower the sensit ivity of mammog mia. No suspic ious masses , calcif icatio ns, or aditi ectura l distor tion in either breast . IMPRES ERENDIRA: BI-RAD S catego ry 2, Benign . There is no eviden ce of malign mara. Screen ing mammog marv are recomm ended in one year. Result s were mailed or given to the pily villanueva. Interp reted By: Jeffrey Parmar Electr onical ly Signed By: Jeffrey Parmar on 024 10:40 AM [email or web address] [facility] [address] , [place], [address], 05/16/2023 12:59:50 04/15/20 24 04/15/2024 DEXA No observ ation record ed. JOSE ALEJANDRO Alvarenga MD [address] [place] [address], [address], 04/18/2024 10:42:56 05/22/19 25 05/21/2024 MAMMO , scree timothy, tomos ynthe sis, bilat eral, w/ CAD [facility] [address] [place] [address], [place] [address] Pily villanueva Name: JAYASHREE villanueva : 1954 Age: 69 years Pily villanueva Orderi ng Provid er: SHABBIR HARRISON EXAM DATE: 2024 EXAM: MG SCREEN ING PAULO MAMMOG PILAR INDICA TION: Routin e screen ing. No person al or family histor y of breast cancer . 3 % lifeti me risk of breast cancer PROCED URE: Multis lice imagin g of both breast s was perfor med in standa rd projec tions using Hologi c Seleni a Dimens ions tomosy nthesi s equipm ent (3D mammog mia) . 2D images were create d from the 3D datase t using C-View softwa re. The study was read with the assist ance of Comput er Aided Detect ion (CAD) softwa re. COMPAR DOV: This was compar ed with previo us mammog marv dated 2023, 2021, 2020 FINDIN GS: The breast s are hetero geneou sly dense, which may obscur e small masses . No new mass, suspic ious calcif icatio n or area of aditi ectura l distor tion. IMPRES ERENDIRA: Negati ve exam. BI-RAD S Catego ry 1, Negati ve, routin e follow -up. The pily villanueva has been entere d into an Neurodyn er system . Result s were mailed or given to the pily villanueva. Interp reted By: Dolores hurtado MD Electr onical ly Signed By: Dolores hurtado MD on 025 4:13 PM [email or web address] [facility] [address], [address], 06/05/2024 14:41:33 Result Notes Documentation Provider Name and Address Organization Details Recorded Time Dexa : [address] [address]ECSWAN, Janet L (id #[id number], : 1955) [address] [address] Encounter Summary - Progress Note Date Printed: 04/17/2023 Documents sent via fax will include the following message: This fax may contain sensitive and confidential personal health information that is being sent for the sole use of the intended recipient. Unintended recipients are directed to securely destroy any materials received. You are hereby notified that the unauthorized disclosure or other unlawful use of this fax or any personal health information is prohibited. To the extent patient information contained in this fax is subject to 42 CFR Part 2, this regulation prohibits unauthorized disclosure of these records. If you received this fax in error, please visit [email or web address] Fax to notify the sender and confirm that the information will be destroyed. If you do not have internet access, please call to notify the sender and confirm that the information will be destroyed. Thank you for your attention and cooperation. [ID:[id number]] Patient Jayashree Ellison (68yo, F) #[id number] 1955 Patient Demographics: [address] [place] [address] Work Phone Encounter Notes: Encounter Reason/Date dexa/bone density scan 04/13/2023 - 09:00AM - BONE DENSITY SB Procedure DocumentationDXA Low Bone Mass 2 - Tx:Bone Densitometry Report Dual Energy X-Ray Absorptiometry (DXA)Follow-up bone mineral density measurement was performed on a [employer] QDR-4500C scanner with good technique. Ordering Provider Victoria Pedro APRN Indications for the study: 1. Osteopenia/monitoring treatment The L1-L4 lumbar spine bone density scan demonstrates lumbar spine T-score of 1.1, Z-score of 3.2, BMD 1.171 g/cm . Additionally, there has been a no statistically significant change in bone density over the lumbar spine when compared to the patient's previous examination on 04/11/2022. The left hip bone density scan demonstrates a femoral neck T-score of -1.4, Z-score of 0.4, BMD 0.698 g/cm . The total left hip T-score of -0.4, Z-score of 1.1, BMD 0.895 g/cm . Additionally there has been a in bone density over the left total hip and a -4.7% decrease in bone density over the femoral neck when compared to the previous bone density measurement on 04/11/2022. IMPRESSION: Low bone mass (osteopenia) as demonstrated by bone density measurements on alendronate therapy.10 year probability of fracture risk using FRAX WHO Fracture Risk Assessment Tool Web version 3.8with age, sex, race, height and weight as stated above andanswer beatrice previous history of low trauma fractures, parental history of hip fractures, current smoking, excessive alcohol consumption ( 3 or more units of alcohol daily), glucocorticoids use ( currently exposed to oral glucocorticoids or has been exposed to oral glucocorticoids for more than 3 months at a dose of prednisolone of 5mg daily or more (or equivalent doses of other glucocorticoids), secondary osteoporosis or rheumatoid arthritis rafael left femoral neck bone mineral density of 0. 698g/cm showed the following: A 10 year probability fracture (%) Major osteoporotic: 15% Hip Fracture: 1.7%As perNational Osteoporosis Foundation 2014,postmenopausal women and men age 50 and older presenting with any the following should be considered for treatment: A hip or vertebral (clinical or morphometric) fracture or T-score = -2.5 at the femoral neck or spine after appropriate evaluation to exclude secondary causes or Low bone mass (T-score between -1.0 and -2.5 at the femoral neck or spine) and a 10-year probability of a hip fracture = 3% or a 10-year probability of a major osteoporosis-related fracture = 20% based on the [place]-adapted WHO algorithm R ECOMMENDATIONS:1. Any further pharmacologic therapy in the form of oral bisphosphonate or other antiresorptive or anabolic therapy if clinically appropriate as per the referring provider. Consider bisphosphonate drug holiday after 3-5 years of therapy to be determined based on bone density and other fracture risk factors as appropriate per referring provider 2. Ensure adequate calcium and vitamin D intake (1200 mg elemental calcium daily and 2000 IU Vit D daily) if this is clinically appropriate. Keep active vitamin D level >30 ng/mL. 3. Encourage practices to help increase bone density (i.e., resistance/weight bearing exercise 3x weekly) if it could be done safely. 4. Discourage practices that would compromise bone density quality (i.e. smoking, excessive alcohol consumption, and caffeine consumption) when applicable. 5. Follow bone density after 1-2-year or as per referring provider, utilizing the same scanning equipment to ensure stability or reliability. 6. Fall prevention. Electronically Signed by: ANUSHA ALVARENGA MD EL[facility] [place] [facility] 04/19/2023 16:10:24 Mammo, Screening, Tomosynthesis, Bilateral, W/ Cad : [place] [address] [place] [address] Patient Name: JAYASHREE ELLISON Patient : 1955 Age: 68 years Patient Ordering Provider: RO HARRISON EXAM DATE: 05/16/2023 EXAM: MG SCREENING PAULO MAMMOGRAM INDICATION: Routine screening. PROCEDURE: Multislice imaging of both breasts was performed in standard projections using [employer] tomosynthesis equipment (3D mammography). 2D images were created from the 3D dataset using C-View software. The study was read with the assistance of Computer Aided Detection (CAD) software. COMPARISON: This was compared with previous mammograms dated 04-11-2022, 04-02-2021, 03-25-2020 FINDINGS: The breasts are heterogeneously dense. This may lower the sensitivity of mammography. No suspicious masses, calcifications, or architectural distortion in either breast. IMPRESSION: BI-RADS category 2, Benign. There is no evidence of malignancy. Screening mammograms are recommended in one year. Results were mailed or given to the patient. Interpreted By: Jeffrey Parmar HARRISON PA-C [address] [place] [address], [phone], [facility] 05/16/2023 12:59:50 Dexa : [address] [address]YVJSPV, Janet L (id #[id number], : 1955) [address] [address] Date: 4RE: Jayashree Ellison, : 1955, PT ID #[id number] Pedro APRN, I would like to thank you for referring Jayashree Ellison to our practice for consultation and evaluation. I have enclosed a copy of the office evaluation for your records. Sincerely, Electronically Signed by: ANUSHA ALVARENGA, MDProcedure DocumentationDXA Low Bone Mass 2 - Tx:Bone Densitometry Dual Energy X-Ray Absorptiometry (DXA) Report & Bone Health Report Trabecular Bone Score ( TBS) Follow-up bone mineral density measurement was performed on a [employer] QDR-4500C scanner with good technique. Ordering Provider Victoria Pedro APRN Indications for the study:1. Post-menopausal state/osteopenia/prior fracture The L1-L4 lumbar spine bone density scan demonstrates lumbar spine T-score of 1.1, Z-score of 3.2, BMD 1.169 g/cm . Additionally, there has been a no statistically significant change in bone density over the lumbar spine when compared to the patient's previous examination on 04/13/2023. The left hip bone density scan demonstrates a femoral neck T-score of -1.3, Z-score of 0.5, BMD 0.706 g/cm . The total left hip T-score of -0.3, Z-score of 1.3, BMD 0.911 g/cm . Additionally there has been a no statistically significant change in bone density over the left total hip or in bone density over the femoral neck when compared to the previous bone density measurement on 04/13/2023. The lumbar spine TBS is 1.613 which suggests a normal microarchitecture compared to reference population. The patient's associated BMD and TBS values suggest a moderate resilience to fracture.IMPRESSION: Low bone mass (osteopenia) on alendronate therapy and moderate resilience to fracture by bone fragility index.As perNational Osteoporosis Foundation 2014,postmenopausal women and men age 50 and older presenting with any the following should be considered for treatment: A hip or vertebral (clinical or morphometric) fracture or T-score = -2.5 at the femoral neck or spine after appropriate evaluation to exclude secondary causes or Low bone mass (T-score between -1.0 and -2.5 at the femoral neck or spine) and a 10-year probability of a hip fracture = 3% or a 10-year probability of a major osteoporosis-related fracture = 20% based on the [place]-adapted WHO algorithm P atient is a candidate for pharmacologic therapy based on the above-mentioned criteria.RECOMMENDATIONS:1 . Any further pharmacologic therapy in the form of oral bisphosphonate or other antiresorptive or anabolic therapy if clinically appropriate as per the referring provider. Consider bisphosphonate drug holiday after 3-5 years of therapy to be determined based on bone density and other fracture risk factors as appropriate per referring provider 2. Ensure adequate calcium and vitamin D intake (1200 mg elemental calcium daily and 2000 IU Vit D daily) if this is clinically appropriate. Keep active vitamin D level >30 ng/mL. 3. Encourage practices to help increase bone density (i.e., resistance/weight bearing exercise 3x weekly) if it could be done safely. 4. Discourage practices that would compromise bone density quality (i.e. smoking, excessive alcohol consumption, and caffeine consumption) when applicable. 5. Follow bone density after 1-2-year or as per referring provider, utilizing the same scanning equipment to ensure stability or reliability. 6. Fall prevention. VICTORIA PEDRO APRN [address] [place], [address], [facility] 04/15/2024 14:25:34 Mammo, Screening, Tomosynthesis, Bilateral, W/ Cad : [place] [address] [place] [address] Patient Name: JAYASHREE ELLISON Patient : 1955 Age: 69 years Patient Ordering Provider: RO HARRISON EXAM DATE: 05/21/2024 EXAM: MG SCREENING PAULO MAMMOGRAM INDICATION: Routine screening. No personal or family history of breast cancer. 3 % lifetime risk of breast cancer PROCEDURE: Multislice imaging of both breasts was performed in standard projections using [employer] tomosynthesis equipment (3D mammography). 2D images were created from the 3D dataset using C-View software. The study was read with the assistance of Computer Aided Detection (CAD) software. COMPARISON: This was compared with previous mammograms dated 05/16/2023, 04/11/2022, 04/02/2021 FINDINGS: The breasts are heterogeneously dense, which may obscure small masses. No new mass, suspicious calcification or area of architectural distortion. IMPRESSION: Negative exam. BI-RADS Category 1, Negative, routine follow-up. The patient has been entered into an automated reminder system. Results were mailed or given to the patient. Interpreted By: Dolores Montanez MD [facility] 14:41:33 Problems Name Problem SNOMED Code Status Onset Date Resolution Date Notes Provider Name and Address Organization Details Recorded Time Atrophic vaginitis 24195591 Active 2015 From Automated Load;Provi andres: Ro Harrison; Status: Active Not Available [employer] 6 04:52:21 Osteoporos is 13354950 Active 2022 VICTORIA PEDRO APRN [address] [place] [address], [phone] , [facility] 3 13:56:50 Problem Notes None recorded. Procedures Surgical History Date Name Laterality Status Provider Name and Address Organization Details Recorded Time 4 DXA Low Bone Mass 2 - Tx completed ANUSHA ALVARENGA MD [address] [place] [address], [phone], [facility] 04/15/2024 12:33:54 4 Pap Smear collection completed LILLIE MAZARIEGOS PA-C [address] [place] [address], [phone], [facility] 05/16/2023 09:33:41 4 Date of Last Pap Smear completed Tanesha Esquivel [facility] 06/08/2023 13:46:09 3 DXA Low Bone Mass 2 - Tx completed ANUSHA ALVARENGA MD [address] [place] [address], [phone], [facility] 04/17/2023 19:51:36 3 Most Recent Bone Density completed Tanesha [facility] 05/15/2023 09:44:20 2 DXA Low Bone Mass 2 - Tx completed ANUSHA ALVARENGA MD [address] [place] [address], [phone], [facility] 04/11/2022 12:40:58 2 Date of Last Mammogram completed Tanesha [facility] 05/15/2023 09:43:31 Tubal Ligation completed [facility] 02/15/2017 13:31:28 Other completed [facility] 02/15/2017 13:31:41 Imaging Results None recorded. Procedure Notes None recorded. Medical Equipment None Reported. Allergies No known drug allergies Medications Name Sig Start Date Stop Date Status Note LastModified by Organization Details LastModified Time alendrona te 70 mg tablet Take 1 tablet by mouth once a week 2023 active Not Available Not Available Not Avai lable meloxicam 7.5 mg tablet Take 1 tablet every day by oral route. 03/13 completed Not Available Not Available Not Available famotidin e 20 mg tablet Take 2 tablets every day by oral route at bedtime. active Not Available Not Available No t Available aspirin 81 mg tablet active Duration : 30 days;Med ication Descript ion: aspirin; refills: 0; Quantity :30 Not Available Not Available Not Available vitamin E (bulk) crystals 02/21 completed Medicati on Descript ion: vitamin E; Route:co mpoundin g; refills: 0; Quantity :1 powder Not Available Not Available Not Available Vitamin C 500 active Medicati on Descript ion: ascorbic acid; refills: 0 Not Available Not Available Not Available alendrona te 04/14 completed Not Available Not Available Not Available Multi-Vit fong HP/Minera ls 1 daily active Not Available Not Available Not Available Os-Javier active Medicati on Descript ion: calcium carbonat e; Route:or al; refills: 0; Quantity :3 tablet Not Available Not Available Not Available Vitamin E Complex active Duration : 10 days;Med ication Descript ion: multivit fong; Route:or al; refills: 0; Quantity :30 tablet Not Available Not Available Not Available Miralax active Not Available Not Avail able Not Available Flax Seed Oil active Not Available Not Available Not Available apple cider vinegar active Not Available Not Available Not Available [place] Oil-1000 active Not Available Not Available Not Available collagen (bovine) active Not Available Not Available Not Available Fish Oil 300 mg-1,000 mg capsule,d elayed release 03/13 completed Medicati on Descript ion: omega-3 polyunsa turated fatty acids; Route:or al; refills: 0 Not Available Not Available Not Available Caltrate 600+d active Not Available Not Avai lable Not Available Vitamin B12 active Not Available Not Available Not Available Vitals Date Recorded Body height Body mass index (BMI) Body weight Systolic And Diastolic Provider Name and Address Organization Details Last Updated DateTime 05/16/2023 162.56 cm 25.9 kg/m2 63595.05 g 114/68 mm[Hg] Tanesha Esquivel [facility] 05/16/2023 09:02:56 Date Recorded Body weight Body mass index (BMI) Body height Heart rate Systolic And Diastolic Provider Name and Address Organization Details Last Updated DateTime 04/13/2023 06300.04 g 26.1 kg/m2 162.56 cm 80 /min 122/80 mm[Hg] Svitlana Solis [facility] 3 09:30:46 Date Recorded Body height Body mass index (BMI) Body weight Body height Systolic And Diastolic Provider Name and Address Organization Details Last Updated DateTime 04/15/2024 162.56 cm 23.9 kg/m2 73022.14 g 162.56 cm 122/78 mm[Hg] Jacqueline Pacheco [facility] 4 09:58:30 Social History Question Answer Notes LastModified by Organizat ion Details LastModified Time Tobacco Smoking Status Never Smoker Audrey Freeman [facility] 02/15/2017 13:31:16 What Is Your Level Of Caffeine Consumption? Moderate [email or web address] Information not available 02/15/2017 Marital Status Single [email or web address] Informatio n not available 02/15/2017 What Was The Date Of Your Most Recent Tobacco Screening? 04/02/2021 [email or web address] Information not available 04/02/2021 Sex: Unknown Functional Status None recorded. Mental Status None recorded. Family History Relationship Description Onset Age of this Age Resolved Age Notes LastModified by Organization Details LastModified Time Mother Family history of malignant neoplasm colon cancer [email or web address] Not available 02/15/2017 13:29:41 Mother Cerebrovascu lar accident [email or web address] Not available 13:30:41 Mother Hypertensive disorder [email or web address] Not available 02/15 13:30:48 Paternal Aunt Family history of malignant neoplasm breast cancer [email or web address] Not available 02/15/2017 13:29:41 Sister Myocardial infarction [email or web address] Not available 01/23 13:30:10 Sister Disorder of thyroid gland [email or web address] Not available 02/15 13:31:10 Brother Myocardial infarction [email or web address] Not available 01/23 13:30:18 Maternal Uncle Family history of malignant neoplasm [email or web address] Not available 2020 13:40:59 Medical History Condition Response Diabetes N Other Y Sleep Apnea N Heart Attack ([place]) N Hyperlipidemia Y Cancer N Deep Vein Thrombosis N Stroke N Thyroid Problems N Hypertension N Gynecological History Statement/Question Response Abnormal Pap Y If Post Menopausal, Age at Menopause 40 Date of Last Colonoscopy Date of Last Mammogram 04/11/2022 Most Recent Bone Density 04/13/2023 Sexually Active? N Post Menopausal Bleeding N Menses Monthly N Date of Last Pap Smear 05/16/2023 Current Control Method Tubal Ligat ion Ovarian Cancer Screening? N Obstetrics History GPAL:G 0 P 0 0 0 0 Past Encounters Encounter ID Performer Location Encounter Start Date Encounter Closed Date Diagnosis/Indication Diagnosis SNOMED-CT Code Diagnosis ICD10 Code Diagnosis IMO Codes Diagnosis Note [id number] RO HARRISON PA-C [employer] [facility] [facility] [address] [place] [address] 02/15/2017 13:08:38 02/15/2017 14:03:39 Screening for osteoporosis 365197923 Z13.820 Routine gy necologic examination done 0560642950 9101 Z01.419 Infection screening 2437 60903 Z11.51 Screening for malignant neoplasm of cervix 297230349 Z12.4 [id number] RO HARRISON PA-C [facility] [facility] [address] [place] [address] 02/21/2018 11:00:30 02/21/2018 13:06:44 Osteoporosis 43342394 M81.0 Routine gy necologic examination done 3862393395 9101 Z01.395 [id number] VICTORIA PEDRO APRN [facility] [address] [place] [address] 03/08/2018 10:39:37 03/08/2018 15:14:45 Osteoporosis 82185206 M81.0 -Reviewed and discussed last bone density scan from 03/31/17 -According to national osteoporos is Foundation , indication s of anti-osteo porosis pharmacolo gical therapy include: -A hip or vertebral [clinical symmetric] fracture -T-score = -2.5 and the femoral neck or spine after appropriat e evaluation to exclude secondary causes -Low bone mass [T-score between -1 and -2.5 at the femoral neck or spine] and that any of probabilit y of a hip fracture = 3% or a 10 year possibilit y of a major osteoporot ic fracture equals 20% (based on [place]-adapted WHO of algorithm) -Patient qualifies for therapy based on bone density scan and history of low-trauma fractures. Discussed that fosamax would be the best option to start. Discussed potential common and rare side effects of fosamax. Patient agreeable to plan.-Will check vitamin D, BMP, PTH w/calcium today.-Sta rt Fosamax 70mg once weekly. Discussed with patient, fosamax is a bisphospho daniele which inhibits osteoclast activity and bone resorption . This medication is taken once a week. Patient should take the medication with 8 ounces of water. For 30 minutes, she should not lie down or eat food. The most common side effect is GERD. Some patients experience bone pain.- We recommend 1200mg calcium daily (from diet or supplement s or both), vitamin D3 2,000IU daily, and weight bearing activity 2-3 times per week as tolerated- Discussed strategies to prevent falls. - Follow up in 3 months to check compliance and tolerance. Patient verbalized understand ing and agreed with plan. All questions answered. Abnormal weight gain 161 296513 R63.5 -Will rule out thyroid abnormalit y as cause for recent weight gain. Obesity 169040006 E66.9 [id number] VICTORIA PEDRO APRN [address] [address] [place] [address] 06/08/2018 09:40:21 06/08/2018 13:45:26 Osteoporosis 78543477 M81.0 -Continue Fosamax 70mg once weekly. Patient should take the medication with 8 ounces of water. For 30 minutes, she should not lie down or eat food.-Cont inue current calcium and vitamin D supplement . -Continue weight bearing activity 2-3 times per week as tolerated- Discussed strategies to prevent falls.-Rep eat bone density scan in 03/2019 at [facility].-Fo llow up in 7 months after bone density scan. Patient verbalized understand ing and agreed with plan. All questions answered. [id number] RO HARRISON PA-C [facility] [address] [place] [address] 03/13/2019 09:46:12 03/13/2019 10:41:17 Routine gynecologic examination done 3030438079 9101 Z01.905 [id number] VICTORIA PEDRO APRN [address] [address] [place] [address] 04/05/2019 09:47:21 04/05/2019 16:04:37 Osteoporosis 51877734 M81.0 -Continue Fosamax 70mg once weekly. Patient should take the medication with 8 ounces of water. For 30 minutes, she should not lie down or eat food. -Repeat labs today as ordered.-F or now, continue current calcium and vitamin D supplement .-Continue weight bearing activity 2-3 times per week as tolerated- Discussed strategies to prevent falls.-Rep eat bone density scan in 03/2021 at [facility] per insurance. -Follow up in 1 year or sooner if needed. Patient verbalized understand ing and agreed with plan. All questions answered. [id number] RO HARRISON PA-C [facility] [address] [place] [address] 03/25/2020 14:16:25 03/25/2020 15:09:39 Routine gynecologic examination done 1836773085 9101 Z01.419 Screening for malignant neoplasm of cervix 361399855 Z12.4 [id number] VICTORIA PEDRO APRN [facility] [address] [place] [address] 04/08/2020 14:06:52 04/08/2020 14:39:38 Osteoporosis 33542144 M81.0 -Continue Fosamax 70mg once weekly. Patient should take the medication with 8 ounces of water. For 30 minutes, she should not lie down or eat food. Plan to continue fosamax for another 1-3 years. -Repeat labs today as ordered.-F or now, continue current calcium and vitamin D supplement .-Continue weight bearing activity 2-3 times per week as tolerated- Discussed strategies to prevent falls.-Rep eat bone density scan in 03/2021 at [facility] per insurance. -Follow up in 1 year or sooner if needed. Patient verbalized understand ing and agreed with plan. All questions answered. [id number] RO HARRISON PA-C [facility] [address] [place] [address] 04/02/2021 13:21:05 04/08/2021 13:05:27 Routine gynecologic examination done 6126678970 9101 Z01.161 [id number] VICTORIA PEDRO APRN [facility] [address] [place], [place] [address] 04/09/2021 10:43:53 04/14/2021 14:17:30 Osteoporosis 20081091 M81.0 -Reviewed and discussed bone density results from 04/02/21, which suggests stability. -Continue Fosamax 70mg once weekly. Patient should take the medication with 8 ounces of water. For 30 minutes, she should not lie down or eat food. Plan to continue fosamax for another 1-2 years. -Repeat labs today as ordered.-F or now, continue current calcium and vitamin D supplement .-Continue weight bearing activity 3 times per week as tolerated- Discussed strategies to prevent falls.-Rep eat bone density scan in 03/2022 at [facility].-Fo llow up in 1 year or sooner if needed. Patient verbalized understand ing and agreed with plan. All questions answered. [id number] VICTORIA PEDRO APRN [facility] [address] [place], [place] [address] 04/11/2022 08:22:39 04/11/2022 09:12:02 Osteoporosis 65328393 M81.0 -Reviewed and discussed bone density results from today, which suggests stability. -Continue Fosamax 70mg once weekly. Patient should take the medication with 8 ounces of water. For 30 minutes, she should not lie down or eat food. Plan to continue fosamax for another 1-2 years. -Repeat labs today as ordered.-F or now, continue current calcium and vitamin D supplement .-Continue weight bearing activity 3 times per week as tolerated- Discussed strategies to prevent falls.-Rep eat bone density scan in 03/2023.-F ollow up in 1 year or sooner if needed. Patient verbalized understand ing and agreed with plan. All questions answered. [id number] ANUSHA ALVARENGA MD BONE DENSITY [address] [place], [place] [address] 04/11/2022 08:22:39 04/11/2022 08:46:33 Osteopenia 099406667 M85.89 [id number] [place] [address] [place] [address] 04/13/2023 08:42:09 04/13/2023 10:22:08 Osteoporosis 27914505 M81.0 -Reviewed and discussed bone density results from today, which suggests:b one loss at femoral neck. -She has taken Fosamax 70mg once weekly for 5 years. History of low-trauma fractures. Recommend switching to prolia. Potential common and rare side effects discussed including ONJ and AFF. Brochure provided. Pt is agreeable if covered by insurance. -Repeat labs today as ordered.-F or now, continue current calcium and vitamin D supplement .-Continue weight bearing activity 3 times per week as tolerated- Discussed strategies to prevent falls. -Follow up in 6m after injection or sooner if needed. Patient verbalized understand ing and agreed with plan. All questions answered. [id number] ANUSHA ALVARENGA MD BONE DENSITY [place] [address] 04/13/2023 08:41:26 04/13/2023 09:16:35 Osteopenia 945455762 M85.89 [id number] LILLIE MAZARIEGOS PA-C [facility] [address] [place] [address] 05/16/2023 08:35:51 05/16/2023 09:42:17 Gynecologic examination 85607844 Z01.419 BSE reviewed and recommende d. Reviewed normal menopause and menopausal symptoms. Mammogram recommende d yearly. Periodic colonoscop y screening recommende d. Counseled regarding continued cervical cancer screening. Reviewed calcium and vitamin D needs and prevention of osteoporos is. Discussed medicare annual visits every 2 years. 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 She would like to start with coconut oil. Recommend OTC Replens twice weekly. [id number] VICTORIA PEDRO APRN [facility] [address] [place] [address] 04/15/2024 09:25:09 04/15/2024 10:16:18 Osteoporosis 14357070 M81.0 -Reviewed and discussed bone density results from today, which suggests: stabilityP er TBS report: The lumbar spine TBS is 1.613 which suggests a normal microarchi tecture compared to reference population . The patient's associated BMD and TBS values suggest a moderate resilience to fracture. -She has taken Fosamax 70mg once weekly for 6 years. History of low-trauma fractures. No fracture for the past year on therapy. Pt previously declined prolia. Recommend a drug holiday. -Repeat labs today as ordered.-F or now, continue current calcium and vitamin D supplement .-Continue weight bearing activity 3 times per week as tolerated- Discussed strategies to prevent falls. -Follow up in 1 year or sooner if needed. Patient verbalized understand ing and agreed with plan. All questions answered. [id number] ANUSHA ALVARENGA MD BONE DENSITY [address] [place] [address] 04/15/2024 09:24:24 04/15/2024 10:11:00 Osteopenia 996763351 M85.89 Health Concerns Section Related Observation LastModified by Organization Detai ls LastModified Time None Recorded Concern Status LastModified by Organization Details LastModified Time None Recorded Advance Directives Directive None Recorded Payers Insurance Date Sequence Insurance Name Policy Number Policy Acuña Covered Member ID Acuña Member ID Guarantor Name 05/18/2024 1 [employer] (MEDICARE REPLACEMENT/A DVANTAGE - PPO) Jayashree Ellison [id number] Jayashree Ellison 05/16/2023 1 [place] [id number] [facility] [id number] [facility] Smiley MarinoScot 05/16/2023 1 [place] [id number] [facility] Scot [id number] [facility] Scot Notes Date Note Type Note Provider Name and Address Organization Details Recorded Time 3 text/html Mrs. Ellison is a 68 year old female patient with a past medical history significant for osteoporosis w/ LTF (bilateral ankle fractures, R wrist), seen in the office today for a follow up. At last visit, we continued fosamax 70mg once weekly. She has taken fosamax since 03/08/18. Patient reports compliance and denies any side effects. No falls or fracture since last visit. She is currently taking calcium and vitamin D supplements (CALTRATE 600mg+D QD). She has continued her physical activity. Joined a gym, lift and cardio 3 days per week. Working at [employer] part-time 10-12k steps at work. Completed two 5k races this year. Her last DEXA/BMD scan was today ([facility]), awaiting final results. 04/02/21 ([facility]). Results: Osteopenia based on left femur neck t-score -1.5 (stable) AP Spine t-score 1.1 (previously 0.4) VICTORIA PEDRO, LEWIS [address] [place], [address], [facility] 04/13/2023 10:14:34 4 text/html Patient is 68 yo female here for annual exam. Last visit was 03/2021 for annual with Ekaterina LARSEN.New to me. Today, offers no complaints. Overall doing well. Wants to be sexually active but has questions about dryness. 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 LILLIE MAZARIEGOS PA-C [address] [place], [address], [facility] 05/16/2023 09:38:43 4 text/html Mrs. Ellison is a 69 year old female patient with a past medical history significant for osteoporosis w/ LTF (bilateral ankle fractures, R wrist), seen in the office today for a follow up. At last visit, we recommended switching to prolia, pt declined. She continued fosamax 70mg once weekly. She has taken fosamax since 03/08/18. Patient reports compliance and denies any side effects. Reports vascular procedure since last visit (valve repair and vein removal). No falls or fracture since last visit. She is currently taking calcium and vitamin D supplements (CALTRATE 600mg+D BID). She has continued her physical activity. Still going to the gym, lift and cardio 3 days per week. Working at [employer] part-time 10k+ steps at work. Her last DEXA/BMD scan was today ([facility]), awaiting final results. VICTORIA PEDRO, SENIOR BUSINESS CONSULTANT [address] [place], [address], [facility] 04/15/2024 11:00:45 OBGyn Episode No OBEpisode recorded.
== END 2025-02-05 23:59 | disposition home or self-care (01) ==
LOC: RAD 09:40
PROVIDERS: PCP Internal Medicine Adolescent Medicine; Visit Provider Internal Medicine Adolescent Medicine
DX: N20.0 Calculus of kidney (principal)
CPT/HCPCS: 74176